=== PATIENT | female | born 1940 | race Caucasian/White ===

== ENCOUNTER 2022-04-30 11:55 | Observation (INO) | payer OTHER, MEDICARE ==
[2022-04-30 13:53] LABS: Absolute Lymphocytes (CBC) 1.4 K/uL (0.7-4.9); Hematocrit 37.6 % (36.0-45.0); Lymphocytes % 15.7 % (15.3-44.8); MCV 88.1 fL (80-100); RBC Red Blood Cell Count 4.27 M/uL (3.86-4.86)
[2022-04-30 14:27] LABS: ALT/SGPT 28 U/L (12-78); Albumin 4.1 g/dL (3.4-5.0); Alkaline Phosphatase 70 U/L (45-117); BUN Blood Urea Nitrogen 24 mg/dL (7-18); Bicarbonate 26 mmol/L (21-32); Bilirubin Total 0.5 mg/dL (0.2-1.0); Creatine Phosphokinase 49 U/L (26-192); Glomerular Filtration Rate 29 ml/min (=/>90); Glucose Level 202 mg/dL (74-106); Lipase 102 U/L (73-393); Protein, Total 7.4 g/dL (6.4-8.2); Sodium Level 138 mmol/L (136-145); Troponin High Sensitivity 12.4 pg/mL (<58.9)
[2022-04-30 14:28] LABS: AST/SGOT 23 U/L (15-37); Bilirubin Direct < 0.1 mg/dL (0-0.2); Magnesium 2.2 mg/dL (1.8-2.4); Potassium 3.2 mmol/L (3.5-5.1)
[2022-04-30 14:41] LABS: SARS-CoV-2 Antigen Rapid Res Negative (Negative)
--- NOTE | 2022-04-30 15:06 | EDPHYS ---
Physician Documentation [facility] Name: Susana Frye Age: 81 yrs Sex: Female : 1940 Arrival Date: 04/30/2022 Time: 12:03 Bed 3 Private MD: ISIDRO Physician Kuldeep Roland HPI: 04/30 14:49 This 81 yrs old Female presents to ER via Wheelchair with complaints of Sent By jus Mueller Syncope. 15:05 The patient has experienced near-syncope, almost passed out. Onset: The kb symptoms/episode began/occurred today. Duration: This was a single episode, that lasted an unknown period of time. Context: occurred Dr Mueller's office, occurred while the patient was sitting to standing. Associated injury: The patient did not suffer any apparent associated injury. Associated signs and symptoms: Pertinent positives: dizziness. Current symptoms: Currently, the patient is not experiencing any symptoms, the patient feels back to baseline, no decreased level of consciousness, no confusion, no dysphasia, no headache, no paralysis, no visual changes. The patient has not experienced similar symptoms in the past. The patient has been recently seen by a physician:. Pt was at Dr Mueller's office to get results of last weeks stress test when she had a near syncopal episode. Pt reports she passed out, Ami reports is was near syncope. This occurred when pt stood from a chair, staff was able to assist pt back into chair. No injuries due to episode. Dr Mueller sent pt to ER for evaluation and admission with him as a consult.. Historical: - Allergies: 12:53 PENICILLINS; iw - Home Meds: 13:11 Effexor XR 150 mg Oral cp24 1 cap once daily [Active]; Januvia Oral [Active]; hb levothyroxine oral [Active]; lisinopril Oral [Active]; Simvastatin Oral [Active]; - PMHx: 12:53 Anxiety; Diabetes - NIDDM; Hypertension; Hypothyroidism; UTI; iw - Immunization history:: Adult Immunizations up to date. - Social history:: Smoking status: Patient denies any tobacco usage or history of. ROS: 13:21 Constitutional: Negative for fever, chills, and weight loss. kb 13:21 Respiratory: Positive for shortness of breath, Negative for cough, dyspnea on exertion, hemoptysis, orthopnea, pleurisy, sputum production, wheezing. 13:21 Neuro: Positive for dizziness, near syncope. 13:21 All other systems are negative. Exam: 13:20 Constitutional: This is a well developed, well nourished patient who is awake, alert, kb and in no acute distress. Head/Face: Normocephalic, atraumatic. ENT: Moist Mucous membranes Cardiovascular: Regular rate and rhythm with a normal S1 and S2. No gallops, murmurs, or rubs. No pulse deficits. Respiratory: Respirations even and unlabored. No increased work of breathing. Talking in full sentences Abdomen/GI: Soft, non-tender. No distention Skin: Warm, dry with normal turgor. Normal color. MS/ Extremity: Pulses equal, no cyanosis. Neurovascular intact. Full, normal range of motion. Neuro: Awake and alert, GCS 15, oriented to person, place, time, and situation. Moves all extremities. Normal gait. Psych: Awake, alert, with orientation to person, place and time. Behavior, mood, and affect are within normal limits. 13:20 ECG was reviewed by the Attending Physician. Vital Signs: 12:53 BP 112 / 44; Pulse 71; Resp 16; Temp 97.5; Pulse Ox 100% on R/A; iw 13:42 BP 104 / 75; Pulse 64; Resp 15; Pulse Ox 99% on R/A; hb 14:50 BP 151 / 56 Supine; Pulse 62; hb 14:54 BP 132 / 71 Sitting; Pulse 63; hb 14:58 BP 107 / 90 Standing; Pulse 76; hb 16:10 BP 129 / 47; Pulse 61; Resp 15; Pulse Ox 99% ; hb 17:48 BP 128 / 68; Pulse 69; Resp 16; Pulse Ox 99% on R/A; hb 19:01 BP 126 / 65; Pulse 69; Resp 21; Pulse Ox 99% on R/A; hb MDM: 12:57 Patient medically screened. kb 13:20 Data reviewed: vital signs, nurses notes. Data interpreted: Pulse oximetry: on room air kb is 100 %. Interpretation: normal. 14:54 Physician consultation: Tahir Alvarez was contacted at 14:54, regarding admission, to the telemetry unit. patient's condition. 15:05 Counseling: I had a detailed discussion with the patient and/or guardian regarding: the kb historical points, exam findings, and any diagnostic results supporting the discharge/admit diagnosis, lab results, the need for further work-up and treatment in the hospital. 04/30 12:57 Order name: Basic Metabolic Panel; Complete Time: 14:48 kb 04/30 12:57 Order name: CBC with Diff; Complete Time: 14:02 kb 04/30 12:57 Order name: CPK; Complete Time: 14:48 kb 04/30 12:57 Order name: Ckmb; Complete Time: 14:48 kb 04/30 12:57 Order name: Hepatic Function; Complete Time: 14:48 kb 04/30 12:57 Order name: Lipase; Complete Time: 14:48 kb 04/30 12:57 Order name: Magnesium; Complete Time: 14:48 kb 04/30 12:57 Order name: Protime (+inr); Complete Time: 14:02 kb 04/30 12:57 Order name: Ptt, Activated; Complete Time: 14:02 kb 04/30 12:57 Order name: Troponin HS; Complete Time: 14:48 kb 04/30 14:02 Order name: SARS RAPID; Complete Time: 14:48 kb 04/30 15:23 Order name: Urine Dipstick-Ancillary; Complete Time: 15:42 EDMS 04/30 15:43 Order name: Urine Microscopic Only kb 04/30 16:59 Order name: Urine Microscopic Only; Complete Time: 17:02 EDMS 04/30 12:57 Order name: EKG; Complete Time: 13:16 kb 04/30 12:57 Order name: Cardiac monitoring; Complete Time: 13:08 kb 04/30 12:57 Order name: EKG - Nurse/Tech; Complete Time: 13:13 kb 04/30 12:57 Order name: IV Saline Lock; Complete Time: 13:41 kb 04/30 12:57 Order name: Labs collected and sent; Complete Time: 13:41 kb 04/30 12:57 Order name: NPO; Complete Time: 13:08 kb 04/30 12:57 Order name: O2 Per Protocol; Complete Time: 13:08 kb 04/30 12:57 Order name: O2 Sat Monitoring; Complete Time: 13:08 kb 04/30 12:57 Order name: Urine Dipstick-Ancillary (obtain specimen); Complete Time: 16:37 kb 04/30 14:48 Order name: Orthostatics; Complete Time: 15:12 kb 04/30 14:59 Order name: Diet Heart Healthy; Complete Time: 15:01 kb EC:20 Rate is 63 beats/min. Rhythm is regular. Left axis deviation noted. [place] interval is kb normal at 148 msec. QRS interval is normal at 96 msec. QT interval is normal at 462 msec. Administered Medications: 16:02 Drug: Potassium Chloride 40 mEq Route: PO; hb 18:04 Follow up: Response: No adverse reaction hb 18:04 Drug: Rocephin (cefTRIAXone) 1 grams Route: IV; Rate: calculated rate; Site: left hb antecubital; Disposition Summary: 04/30/22 15:05 Hospitalization Ordered Hospitalization Status: Observation kb Provider: Thair Alvarez Location: Telemetry/MedSurg (observation) kb Condition: Stable kb Problem: new kb Symptoms: are unchanged kb Bed/Room Type: Standard Room Assignment: 203(04/30/22 18:37) Diagnosis - Syncope kb - Dizziness and giddiness kb - UTI/ Urinary tract infection, site not specified kb Forms: - Medication Reconciliation Form kb - SBAR form kb Signatures: Dispatcher [employer] EDMS Sari Gardner, ARACELI-C PULMONOLOGY PHYSICIAN-Ramya Cortes RN RN Margaret Mosqueda, CYNTHIA MARIE Rebecca Curtis RN RN Corrections: (The following items were deleted from the chart) 18:37 15:05 kb dw
--- NOTE | 2022-04-30 15:06 | ER ---
Nurse's Notes [facility] Name: Susana Frye Age: 81 yrs Sex: Female : 1940 Arrival Date: 04/30/2022 Time: 12:03 Bed 3 Private MD: Diagnosis: Syncope;Dizziness and giddiness;UTI/ Urinary tract infection, site not specified Presentation: 04/30 12:51 Chief complaint: Patient states: I passed out at Dr. Mueller office , and he told me to iw come here she stood up to walk in for the appointment and she passed out did not hit her head, was told she had a blockage that showed up from her stress test , denies chest pain or palpitations. 12:53 Coronavirus screen: At this time, the client does not indicate any symptoms associated iw with coronavirus-19. Ebola Screen: Patient negative for fever greater than or equal to 101.5 degrees Fahrenheit, and additional compatible Ebola Virus Disease symptoms Patient denies exposure to infectious person. Patient denies travel to an Ebola-affected area in the 21 days before illness onset. No symptoms or risks identified at this time. Initial Sepsis Screen: Does the patient meet any 2 criteria? No. Patient's initial sepsis screen is negative. Does the patient have a suspected source of infection? No. Patient's initial sepsis screen is negative. Risk Assessment: Do you want to hurt yourself or someone else? Patient reports no desire to harm self or others. Onset of symptoms was April 30, 2022. 12:53 Method Of Arrival: Wheelchair iw 12:53 Acuity: GRETEL 3 iw Historical: - Allergies: 12:53 PENICILLINS; iw - Home Meds: 13:11 Effexor XR 150 mg Oral cp24 1 cap once daily [Active]; Januvia Oral [Active]; hb levothyroxine oral [Active]; lisinopril Oral [Active]; Simvastatin Oral [Active]; - PMHx: 12:53 Anxiety; Diabetes - NIDDM; Hypertension; Hypothyroidism; UTI; iw - Immunization history:: Adult Immunizations up to date. - Social history:: Smoking status: Patient denies any tobacco usage or history of. Screenin:10 Abuse screen: Denies threats or abuse. Denies injuries from another. Nutritional hb screening: No deficits noted. Tuberculosis screening: No symptoms or risk factors identified. Fall Risk Total Roy Fall Scale indicates Low Risk Score (25-44 pts). Fall prevention measures have been instituted. Side Rails Up X 2 Frequent Obs/Assesments occuring Family Present and informed to notify staff if they need to leave bedside As available Patient and Family Educated on Fall Prevention Program and strategies. Assessment: 13:10 General: Appears in no apparent distress. Behavior is calm, cooperative. Pain: Denies hb pain. Neuro: Level of Consciousness is awake, alert, obeys commands, Oriented to person, place, time, situation. Cardiovascular: Patient's skin is warm and dry. Rhythm is regular. Respiratory: Respiratory effort is even, unlabored, Respiratory pattern is regular, symmetrical. GI: No signs and/or symptoms were reported involving the gastrointestinal system. : No signs and/or symptoms were reported regarding the genitourinary system. EENT: No signs and/or symptoms were reported regarding the EENT system. Derm: Skin is pink, warm \T\ dry. Musculoskeletal: No signs and/or symptoms reported regarding the musculoskeletal system. 14:00 Reassessment: Patient appears in no apparent distress at this time. Patient and/or hb family updated on plan of care and expected duration. Pain level reassessed. Patient is alert, oriented x 3, equal unlabored respirations, skin warm/dry/pink. 15:00 Reassessment: Patient appears in no apparent distress at this time. No changes from hb previously documented assessment. Patient and/or family updated on plan of care and expected duration. Pain level reassessed. 16:00 Reassessment: Patient appears in no apparent distress at this time. Patient and/or hb family updated on plan of care and expected duration. Pain level reassessed. Patient is alert, oriented x 3, equal unlabored respirations, skin warm/dry/pink. 17:48 Reassessment: Patient appears in no apparent distress at this time. Patient and/or hb family updated on plan of care and expected duration. Pain level reassessed. Patient is alert, oriented x 3, equal unlabored respirations, skin warm/dry/pink. 18:45 Reassessment: Patient appears in no apparent distress at this time. Patient and/or hb family updated on plan of care and expected duration. Pain level reassessed. Patient is alert, oriented x 3, equal unlabored respirations, skin warm/dry/pink. 20:02 Reassessment: Patient appears in no apparent distress at this time. No changes from hb previously documented assessment. Patient and/or family updated on plan of care and expected duration. Pain level reassessed. Patient is alert, oriented x 3, equal unlabored respirations, skin warm/dry/pink. Vital Signs: 12:53 BP 112 / 44; Pulse 71; Resp 16; Temp 97.5; Pulse Ox 100% on R/A; iw 13:42 BP 104 / 75; Pulse 64; Resp 15; Pulse Ox 99% on R/A; hb 14:50 BP 151 / 56 Supine; Pulse 62; hb 14:54 BP 132 / 71 Sitting; Pulse 63; hb 14:58 BP 107 / 90 Standing; Pulse 76; hb 16:10 BP 129 / 47; Pulse 61; Resp 15; Pulse Ox 99% ; hb 17:48 BP 128 / 68; Pulse 69; Resp 16; Pulse Ox 99% on R/A; hb 19:01 BP 126 / 65; Pulse 69; Resp 21; Pulse Ox 99% on R/A; hb ED Course: 12:03 Patient arrived in ED. rg4 12:53 Triage completed. iw 12:54 Arm band placed on. iw 12:57 Sari Gardner FNP-C [facility]. kb 12:57 Kuldeep Roland MD is Attending Physician. kb 13:05 Rebecca Curtis, CYNTHIA is Primary Nurse. hb 13:10 Patient has correct armband on for positive identification. Placed in gown. Bed in low hb position. Call light in reach. 13:13 Side rails up X 1. Door closed. Noise minimized. Warm blanket given. Client placed on mb7 continuous cardiac and pulse oximetry monitoring. NIBP monitoring applied. traffic monitor specialist on. 13:13 EKG done, by ED staff, reviewed by Sari MARTIN. mb7 13:25 Inserted saline lock: 22 gauge in right antecubital area, using aseptic technique. hb Blood collected. 14:16 SARS RAPID Sent. mb7 15:05 Tahir Alvarez is Hospitalizing Provider. kb 16:09 Urine Microscopic Only Sent. hb 19:04 Primary Nurse role handed off by Rebecca Curtis, RN eb 20:48 No provider procedures requiring assistance completed. Patient admitted, IV remains in hb place. Administered Medications: 16:02 Drug: Potassium Chloride 40 mEq Route: PO; hb 18:04 Follow up: Response: No adverse reaction hb 18:04 Drug: Rocephin (cefTRIAXone) 1 grams Route: IV; Rate: calculated rate; Site: left hb antecubital; Medication: 13:10 VIS not applicable for this client. hb Outcome: 15:05 Decision to Hospitalize by Provider. kb 20:48 Admitted to Med/surg accompanied by nurse, via wheelchair, room 203. hb 20:48 Condition: stable 20:48 Instructed on the need for admit, Demonstrated understanding of instructions. 20:48 Patient left the ED. Signatures: Sari Gardner, MEDICAL RECORD TECHNICIAN-C MEDICAL RECORD TECHNICIAN-Ckb Margaret Domínguez, RN RN Rebecca Curtis RN RN Lily Sellers rg4 Daja Huerta Mary mb7
[2022-04-30 15:22] LABS: Urine Blood Negative (Negative); Urine Glucose Negative (Negative); Urine Protein Trace (Negative); Urine Specific Gravity >=1.030 (1.005-1.030); Urine pH 5.5 (5.0-7.0)
--- NOTE | 2022-04-30 15:27 | P.HP ---
Certification for Inpatient Patient admitted to: Observation With expected LOS: <2 Midnights Practitioner: I am a practitioner with admitting privileges, knowledge of patient current condition, hospital course, and medical plan of care. Services: Services provided to patient in accordance with Admission requirements found in Title 42 Section 412.3 of the Code of Federal Regulations Patient History Date of Service: 04/30/22 Reason for admission: Syncope History of Present Illness: 81-year-old man with a past medical history of hypertension, dementia, depression had a syncopal episode at the online content coordinator Dr. Mueller's office. Dr. Mueller directed patient to the emergency department for further evaluation. She recently had a stress test during which per Dr. Kuhn reported inferior reversible ischemia. Initial troponin in the ED is negative. Patient reports dizziness especially with sitting up or standing. Noted a systolic blood pressure reading of 76 in the ED. she is also bradycardic, EKG with undetermined rhythm-sinus rhythm versus junctional rhythm. UA suggest UTI. Patient is hospitalized for further management. Allergies Penicillins Allergy (Unverified 03/21/17 12:38) Unknown - Past Medical/Surgical History -: Hypertension -: Depression - Family History Father -: Heart disease - Social History Smoking Status: Never smoker Alcohol use: No CD- Drugs: No Place of Residence: Home Review of Systems Other: Except as documented, all other systems reviewed and negative. Physical Examination - Physical Exam General: Alert, In no apparent distress, Oriented x3 HEENT: Atraumatic, PERRLA, Mucous membr. moist/pink, EOMI, Sclerae nonicteric Neck: Supple, JVD not distended, No Thyromegaly Respiratory: Clear to auscultation bilaterally, Normal air movement Cardiovascular: No edema, Normal S1 S2, No murmurs, Other (Regular rhythm and bradycardic) Gastrointestinal: Normal bowel sounds, Soft and benign, Non-distended, No tenderness Musculoskeletal: No swelling, No tenderness Integumentary: No rashes, No erythema Neurological: Normal speech, Normal strength at 5/5 x4 extr, Cranial nerves 3-12 intact Lymphatics: No axilla or inguinal lymphadenopathy - Studies Laboratory Data (last 24 hrs) 04/30/22 13:29: PT 11.0, INR 1.00, APTT 28.0 04/30/22 13:29: WBC 8.8, Hgb 12.6, Hct 37.6, Plt Count 216 04/30/22 13:29: Sodium 138, Potassium 3.2 L, BUN 24 H, Creatinine 1.78 H, Glucose 202 H, Magnesium 2.2, Total Bilirubin 0.5, AST 23, ALT 28, Alkaline Phosphatase 70, Lipase 102 Assessment and Plan - Problems (Diagnosis) (1) Syncope and collapse Current Visit: Yes Status: Acute (2) Abnormal EKG Current Visit: Yes Status: Acute (3) History of ischemic heart disease Current Visit: Yes Status: Acute (4) UTI (urinary tract infection) Current Visit: Yes Status: Acute - Plan Placed under observation. Telemetry Continue to trend troponin IV normal saline bolus for hypotension Check orthostatic vitals. IV Rocephin for UTI. Cardiology consult. Repeat EKG in a.m. Hold BP meds. Follow culture results. - Advance Directives Does patient have a Living Will: No Does patient have a Durable POA for Healthcare: No
[2022-04-30] MEDS ORDERED: POTASSIUM CL SA 10 MEQ TAB PO ONE (16:24)
[2022-04-30 16:58] LABS: Urine Bacteria >50 /HPF (<20)
[2022-04-30] MEDS ORDERED: NA CHLORIDE 0.9% 1,000 ML IV ONE (17:00)
[2022-04-30] MEDS ORDERED: CEFTRIAXONE 1000 MG/VIAL ONE (18:06)
[2022-04-30] MEDS ORDERED: ACETAMINOPHEN 500 MG TAB PO PRN (20:49)
[2022-04-30] MEDS ORDERED: ONDANSETRON 4 MG/2 ML VIAL IV PRN (20:49)
[2022-04-30 20:59] VITALS: BMI 27.7
[2022-04-30 22:06] LABS: Urine Blood Negative (Negative); Urine Glucose 3+ (Negative); Urine Protein Negative (Negative); Urine pH 5.5 (5.0-7.0)
[2022-04-30] MEDS: HEPARIN 5000 UNIT/ML 1 ML VIAL SQ SCH (22:31)
[2022-04-30] MEDS: INSULIN -REGULAR HUMAN 50 UNIT/0.5 ML ML SQ SCH (23:17)
[2022-04-30] MEDS: NA CHLORIDE 0.9% 1,000 ML IV SCH (23:54)
[2022-05-01] MEDS: HEPARIN 5000 UNIT/ML 1 ML VIAL SQ SCH ×3 (01:00→16:25)
[2022-05-01 05:50] LABS: Absolute Lymphocytes (CBC) 2.5 K/uL (0.7-4.9); Hematocrit 36.4 % (36.0-45.0); MCV 86.4 fL (80-100); MPV 9.3 fL (7.6-11.3); RBC Red Blood Cell Count 4.21 M/uL (3.86-4.86)
[2022-05-01 06:08] LABS: Albumin 3.6 g/dL (3.4-5.0); Bilirubin Total 0.5 mg/dL (0.2-1.0); Magnesium 1.9 mg/dL (1.8-2.4); Phosphorus 2.9 mg/dL (2.5-4.9); Protein, Total 6.7 g/dL (6.4-8.2); Thyroid Stimulating Hormone 1.58 uIU/mL (0.360-3.740); Troponin High Sensitivity 18.8 pg/mL (<58.9)
[2022-05-01] MEDS: NA CHLORIDE 0.9% 1,000 ML IV SCH ×3 (06:49→16:37)
[2022-05-01 07:10] LABS: Urine Bilirubin Negative (Negative); Urine Blood Negative (Negative); Urine Clarity Clear (Clear); Urine Color Yellow (Yellow); Urine Glucose Negative (Negative); Urine Protein Negative (Negative); Urine Urobilinogen 0.2 mg/dL (0.2-1.0); Urine pH 5.5 (5.0-7.0)
[2022-05-01] MEDS: INSULIN -REGULAR HUMAN 50 UNIT/0.5 ML ML SQ SCH ×3 (07:30→16:06)
[2022-05-01 07:33] LABS: Urine Bacteria >50 /HPF (<20); Urine RBC <5 /HPF (None Seen)
[2022-05-01] MEDS ORDERED: PNEUMOCOCCAL VACCINE 0.5 ML IMVAC ONE (09:00)
[2022-05-01] MEDS ORDERED: POTASSIUM CL SA 10 MEQ TAB PO ONE (09:00)
[2022-05-01] MEDS ORDERED: CEFTRIAXONE 1,000 MG in NA CHLORIDE 0.9% 50 ML IVPB SCH (09:00)
[2022-05-01 12:01] VITALS: O2SAT 96
--- NOTE | 2022-05-01 13:17 | P.PN ---
Subjective Date of Service: 05/01/22 Chief Complaint: Syncope Patient reports mild dizziness with ambulation Blood pressure improved and patient is currently hypertensive. Physical Examination - Vital Signs Temperature: 97.4 F Blood Pressure: 148/76 Pulse: 70 Respirations: 14 Pulse Ox (%): 97 - Studies Laboratory Data (last 24 hrs) 04/30/22 13:29: PT 11.0, INR 1.00, APTT 28.0 04/30/22 13:29: WBC 8.8, Hgb 12.6, Hct 37.6, Plt Count 216 04/30/22 13:29: Sodium 138, Potassium 3.2 L, BUN 24 H, Creatinine 1.78 H, Glucose 202 H, Magnesium 2.2, Total Bilirubin 0.5, AST 23, ALT 28, Alkaline Phosphatase 70, Lipase 102 Assessment And Plan - Current Problems (Diagnosis) (1) Syncope and collapse Current Visit: Yes Status: Acute (2) Abnormal EKG Current Visit: Yes Status: Acute (3) History of ischemic heart disease Current Visit: Yes Status: Acute (4) UTI (urinary tract infection) Current Visit: Yes Status: Acute - Plan Physical Exam General: Alert, In no apparent distress, Oriented x3 Respiratory: Clear to auscultation bilaterally, Normal air movement Cardiovascular: No edema, Normal S1 S2, No murmurs,Regular rhythm. Gastrointestinal: Normal bowel sounds, Soft and benign, Non-distended, No tenderness Musculoskeletal: No swelling, No tenderness Integumentary: No rashes, No erythema Neurological: Normal strength at 5/5 x4 extr, Cranial nerves 3-12 intact Lymphatics: No axilla or inguinal lymphadenopathy Troponin trended negative. Blood pressure has improved. Discontinue IV fluid. Check orthostatic vitals. Continue IV Rocephin for UTI and follow urine culture. Cardiology to see patient. Follow culture results. Avoid beta-blockers for now. Resume home antihypertensives if blood pressure stays high. Echocardiogram
[2022-05-01 15:33] VITALS: BP 160/56; TEMP 97.6
--- NOTE | 2022-05-01 17:09 | P.DS ---
Admission Date: 04/30/22 Discharge Date: 05/01/22 Disposition: DC HOME/HOME HEALTH CARE Discharge Condition: FAIR Reason for Admission: Syncope - Problems (1) Syncope and collapse Current Visit: Yes Status: Acute (2) Abnormal EKG Current Visit: Yes Status: Acute (3) History of ischemic heart disease Current Visit: Yes Status: Acute (4) UTI (urinary tract infection) Current Visit: Yes Status: Acute Brief History of Present Illness: 81-year-old man with a past medical history of hypertension, dementia, depression had a syncopal episode at the director data management Dr. Mueller's office. Dr. Mueller directed patient to the emergency department for further evaluation. She recently had a stress test during which per Dr. Kuhn reported inferior reversible ischemia. Initial troponin in the ED is negative. Patient reports dizziness especially with sitting up or standing. Noted a systolic blood pressure reading of 76 in the ED. she is also bradycardic, EKG with undetermined rhythm-sinus rhythm versus junctional rhythm. UA suggest UTI. Patient was hospitalized for further management. Hospital Course: Placed under observation on the medical floor. She was hydrated with IV fluid. She became hypertensive on the floor. Orthostatic vitals were negative. UA showed evidence of UTI. Urine culture growing gram-negative rods. Patient treated for UTI with IV Rocephin. Her dizziness improved. Troponin trended negative. She was seen by physical therapy and was able to ambulate to 50 feet with a rolling walker. Patient seen by cardiology-Dr. Mueller who is planning cardiac catheterization as an outpatient. Patient is discharged with Levaquin to continue treatment for the UTI. She will follow with Dr. Mueller as an outpatient for arrangement for cardiac cath. Vital Signs/Physical Exam: Temp Pulse Resp BP Pulse Ox 97.6 F 66 14 160/56 H 98 05/01/22 15:32 05/01/22 15:32 05/01/22 15:32 05/01/22 15:32 05/01/22 15:32 General: Alert, In no apparent distress, Oriented x3 HEENT: Mucous membr. moist/pink Neck: JVD not distended Respiratory: Clear to auscultation bilaterally, Normal air movement Cardiovascular: No edema, Regular rate/rhythm, Normal S1 S2 Gastrointestinal: Soft and benign, Non-distended, No tenderness Musculoskeletal: No swelling Integumentary: No rashes Neurological: Normal strength at 5/5 x4 extr Laboratory Data at Discharge: WBC 9.1 K/uL (4.3-10.9) 05/01/22 05:16 Hgb 12.7 g/dL (12.0-15.0) 05/01/22 05:16 Hct 36.4 % (36.0-45.0) 05/01/22 05:16 Plt Count 212 K/uL (152-406) 05/01/22 05:16 PT 11.0 SECONDS (9.5-12.5) 04/30/22 13:29 INR 1.00 04/30/22 13:29 APTT 28.0 SECONDS (24.3-36.9) 04/30/22 13:29 Sodium 139 mmol/L (136-145) 05/01/22 05:16 Potassium 4.1 mmol/L (3.5-5.1) 05/01/22 14:43 BUN 22 mg/dL (7-18) H 05/01/22 05:16 Creatinine 1.51 mg/dL (0.55-1.3) H 05/01/22 05:16 Glucose 135 mg/dL (74-106) H 05/01/22 05:16 Phosphorus 2.9 mg/dL (2.5-4.9) 05/01/22 05:16 Magnesium 1.9 mg/dL (1.8-2.4) 05/01/22 05:16 Total Bilirubin 0.5 mg/dL (0.2-1.0) 05/01/22 05:16 AST 18 U/L (15-37) 05/01/22 05:16 ALT 25 U/L (12-78) 05/01/22 05:16 Alkaline Phosphatase 67 U/L (45-117) 05/01/22 05:16 Triglycerides 214 mg/dL (<150) H 05/01/22 05:16 Cholesterol 181 mg/dL (<200) 05/01/22 05:16 HDL Cholesterol 54 mg/dL (40-60) 05/01/22 05:16 Cholesterol/HDL Ratio 3.35 05/01/22 05:16 Lipase 102 U/L (73-393) 04/30/22 13:29 Home Medications: Cider Vinegar [Apple Cider Vinegar] 450 mg PO DAILY 05/01/22 Ferrous Sulfate 1 tab PO DAILY 05/01/22 Levothyroxine Sodium [Levothyroxine] 1 tab PO DAILY 05/01/22 Losartan Potassium 1 tab PO DAILY 05/01/22 Mv-Mn/Om3/Dha/Epa/Fish/Lut/Shelia [Ocuvite Adult 50 Plus Softgel] 1 tab PO DAILY 05/01/22 Sitagliptin Phosphate [Januvia] 100 mg PO DAILY 05/01/22 Venlafaxine HCl [Venlafaxine HCl ER] 1 tab PO DAILY 05/01/22 hydroCHLOROthiazide [Hydrochlorothiazide] 1 tab PO DAILY 05/01/22 levoFLOXacin [Levaquin] 500 mg PO DAILY #4 tab 05/01/22 New Medications: levoFLOXacin [Levaquin] 500 mg PO DAILY #4 tab Diet: AHA Activity: Fall precautions Followup: NONE,NONE [Primary Care Provider] - Lele Mueller MD [ACTIVE - CAN ADMIT] - 1 Week
--- NOTE | 2022-05-01 22:10 | CON ---
Date of Consultation: 05/01/2022 Reason For Consultation: Coronary artery disease and near syncope. History Of Present Illness: A 81-year-old female, history of hypertension, mild dementia, depression , was evaluated in my office yesterday. She almost had a near syncopal episode. She was very dizzy and lightheaded. So, I directed her to be admitted to the hospital. She appeared to be slightly deh ydrated and has urinary tract infection. Today, she feels much better and does not have any symptoms . No further dizziness. Past Medical History: Hypertension and depression. Medication: Refer reconciliation sheet for detailed list. Allergies: PENICILLIN. Family History: No premature coronary artery disease or cancer. Social History: Does not smoke or drink. Does not use any drugs. Review of Systems: All systems reviewed and are negative except for mentioned in HPI. Physical Examination: Vital Signs: Reviewed. Head and Neck: Pupils are equal, reactive to light. Intact eye movements. No JVD. No cervical richard nopathy. Neck supple. Thyroid is not enlarged. Lungs: Clear to auscultation bilaterally. No rhonchi, wheezing, crackles. No accessory muscle use. Heart: Regular rate and rhythm. No extra sounds. Abdomen: Soft, nontender. Bowel sounds positive. No organomegaly. No masses or hernia. No rigidi ty or rebound. Extremities: No edema, clubbing, cyanosis. Intact pulses. Skin: No rash. Neurologic: Alert, awake, oriented x3. No acute focal deficits appreciated. Lymph Nodes: No cervical or axillary lymphadenopathy. Investigations: Labs were reviewed. Creatinine is down from 1.78 to 1.51. Troponins are negative. Hemoglobin is 12.7 now, white blood cell count is 9.1. Assessment And Recommendation: 1.Near syncope due to dehydration, now with the anglican of her fluids, she feels much better. I t is okay from a cardiology standpoint to be released and we will follow up her as an outpatient. 2.Acute renal failure due to dehydration, unresolved. 3.Urinary tract infection. 4.Abnormal stress test, but no chest pain. We will plan for a coronary angiogram as an outpatient. SR/MODL Voice ID: [id number] Report ID: [id number]
--- NOTE | 2022-05-02 16:58 | EKG ---
Test Date: 2022-04-30 Test Time: 13:11:05 Pharmaceutical Botanist: MB MEASUREMENT RESULTS: Intervals: Rate: 63 VT: 148 QRSD: 96 QT: 452 QTc: 462 Hubert[place]: P: 21 VT: 148 QRS: -11 T: 7 INTERPRETIVE STATEMENTS: Normal sinus rhythm Minimal voltage criteria for LVH, may be normal variant Nonspecific T wave abnormality Abnormal ECG Compared to ECG 03/21/2017 09:40:52 Left ventricular hypertrophy now present T-wave abnormality now present Electronically Signed On 05-02-22 16:57:28 CDT by Lele Mueller
== END 2022-05-01 17:55 | disposition home or self-care (01) ==
LOC: ER 11:55 → ERHOLD 15:21 → 2ND 20:31
PROVIDERS: ADMIT Internal Medicine; ATTEND Internal Medicine
DX: R55 Syncope and collapse (principal); E86.0 Dehydration; N17.9 Acute kidney failure, unspecified; N39.0 Urinary tract infection, site not specified; I10 Essential (primary) hypertension; I95.9 Hypotension, unspecified; R00.1 Bradycardia, unspecified; R42 Dizziness and giddiness; E03.9 Hypothyroidism, unspecified; I25.89 Other forms of chronic ischemic heart disease; R94.31 Abnormal electrocardiogram [ECG] [EKG]; R94.39 Abnormal result of other cardiovascular function study; F03.90 Unspecified dementia, unspecified severity, without behavioral disturbance, psychotic disturbance, mood disturbance, and anxiety; F32.A Depression, unspecified; Z79.84 Long term (current) use of oral hypoglycemic drugs; Z79.899 Other long term (current) drug therapy; Z88.0 Allergy status to penicillin; Z20.822 Contact with and (suspected) exposure to COVID-19; Z82.49 Family history of ischemic heart disease and other diseases of the circulatory system
CPT/HCPCS: 93005; 87088; 85025 ×2; 81001; 87086; 80048; 36415; 83735 ×2; 82550; 84100; 84132; 85610; 80061; 82947 ×4; 80076; 85730; 84443; 87077; 87186; 84484 ×4; 82553; 83690; 80053; 97116; 97161; 97530; 94760; 96374; 99285; 87811; J1815 ×2; J1644 ×3; J7030 ×3; G0378 ×3; 81003; 81015

== ENCOUNTER 2022-05-17 12:30 | Day surgery (SDC) | payer OTHER, MEDICARE ==
[2022-05-11 15:26] LABS: SARS-CoV-2 Antigen Rapid Res Negative (Negative)
--- NOTE | 2022-05-11 15:28 | RAD REPORT ---
EXAM DESCRIPTION: RAD - Chest Pa And Lat (2 Views) - 05/11/2022 3:19 pm CLINICAL HISTORY: Pre op pending heart catheterization Chest pain. COMPARISON: CHEST PA AND LAT 2 VIEW dated 04/03/2013; CHEST PA AND LAT 2 VIEW dated 06/21/2006 FINDINGS: The lungs are clear. The heart is normal in size. No displaced fractures. Left total shoul corrine arthroplasty. Mild dextroscoliosis of the thoracic spine. IMPRESSION: No acute or concerning finding suspected.
[2022-05-17] MEDS ORDERED: NA CHLORIDE 0.9% 500 ML ONE (12:42)
[2022-05-17] MEDS ORDERED: FENTANYL CITR 100 MCG/2 ML ONE (13:19)
[2022-05-17] MEDS ORDERED: MIDAZOLAM HCL 2 MG/2 ML INJ ONE (13:19)
[2022-05-17] MEDS ORDERED: HEPA 1000U/500MLS 2,000 UNIT/1,000 ML BAG IV ONE (13:19)
[2022-05-17] MEDS ORDERED: LIDOCAINE 1% MPF 5 ML VIAL ONE (13:20)
[2022-05-17] MEDS ORDERED: HEPARIN 10,000 UNIT/10 ML VIAL IV ONE (13:20)
[2022-05-17] MEDS ORDERED: HEPARIN 5000 UNIT/ML 1 ML VIAL ONE (13:20)
[2022-05-17] MEDS ORDERED: NITROGLYCERIN 100 MCG/ML SYR (for cath lab use only) IV ONE (13:20)
[2022-05-17] MEDS ORDERED: VERAPAMIL HCL 10 MG/4 ML VIAL IV ONE (13:20)
[2022-05-17] MEDS ORDERED: ATROPINE SULF 1 MG/10 ML SYR IV ONE (13:20)
[2022-05-17 15:55] VITALS: TEMP 97.8
[2022-05-17 16:15] VITALS: BP 119/59; O2SAT 95
--- NOTE | 2022-05-17 20:18 | OP ---
Date of Procedure: 05/17/2022 Surgeon: ABNER ENCARNACION Procedures Performed: 1.Selective coronary angiogram. 2.Left heart catheterization. Indication: Abnormal stress test. Access: Right radial artery 6-Bangl[place]hi closed with TR band. Complications: None. Bleeding: Less than 10 mL. Anesthesia: Total sedation time is none with negative sedation. Description Of Procedure: After risks, benefits, and alternatives were explained, the patient agreed to the procedure and signed informed consent. The patient was brought into the cardiac discharge la boratory, prepped and draped in usual sterile fashion. Then, using a local anesthetic, I numbed the skin and subcutaneous tissue and the right wrist and then accessed right radial artery using ultrasou nd with a 6-Bangladeshi Slender sheath and took 5-Bangl[place] 4.0 catheter into the aortic root, engaged left main and the right coronary artery, took standard views and the catheter was pushed over the wir e into the LV. LVEDP was measured and pullback did not record any gradient. Then, we removed the ca theter and the sheath, placed TR band with good hemostasis. Findings: 1.Left main is large and normal. 2.LAD; large vessel, normal proximal segment in the mid segment. There is a 40% stenosis in a long segment and then becomes normal. All diagonal branches are normal. 3.Left circumflex; moderate-sized and normal. 4.RCA is dominant, normal circulation. 5.Normal LVEDP between 8 and 10 mmHg. Conclusion: 1.Mild nonobstructive coronary artery disease involving the LAD. 2.Normal LVEDP. Plan: Aspirin and statin, monitor clinically. SR/MODL Voice ID: [id number] Report ID: [id number]
== END 2022-05-17 17:01 | disposition home or self-care (01) ==
LOC: CCL 12:30
PROVIDERS: ATTEND Internal Medicine
DX: I25.10 Atherosclerotic heart disease of native coronary artery without angina pectoris (principal); I10 Essential (primary) hypertension; E78.5 Hyperlipidemia, unspecified; E11.9 Type 2 diabetes mellitus without complications; Z79.899 Other long term (current) drug therapy; Z88.0 Allergy status to penicillin; Z20.822 Contact with and (suspected) exposure to COVID-19; Z82.49 Family history of ischemic heart disease and other diseases of the circulatory system
CPT/HCPCS: 36415; 82947 ×2; 71046; 93458; 76937; 87811; C1893; J1644 ×2; J7040; J2250; J3010; Q9966